=== PATIENT | male | born 1995 | race Caucasian/White ===

== ENCOUNTER 2018-11-16 10:57 | Emergency (ER) | payer MEDICAID, SELFPAY ==
--- NOTE | 2018-11-16 11:09 | W.ED.GENAD ---
Discharge Plan Disposition Patient Disposition: HOME Condition: Fair Discharge Details Chief Complaint: DentalOral Clinical Impression: Dental infection Primary Care Provider: None,None ED Provider: Gloria Trent Home Meds and New Rx's Prescriptions: New clindamycin HCl 150 mg capsule 450 mg PO TID Qty: 63 RF: 0 Discharge Instructions Instructions: Clindamycin (By mouth), Dental Abscess (ED) Additional Instructions: Encourage hydration. Continue with Tylenol and ibuprofen as needed for discomfort. Take antibiotics as prescribed, even if symptoms improve please take the entire course. You are given your first dose of clindamycin here, you will take the next dose tonight. Please keep upcoming appointment with a dentist even if symptoms improve. If you develop fevers, increased pain, increased swelling or other new/worsening symptoms please seek care urgently once again Medical Decision Making Patient is a 23 year old male, accompanied by his , with c/c of left upper dental pain. Pain initially began one week ago, he was seen in [place] and was placed on Penicillin. Finished Penicillin 2 days ago. Reports that it was feeling much improved until he ate last night. Noted increased pain and swelling which has continued ot increase today. He has swelling of the left cheek, no fluctuance, warmth or erythema noted. He has pain along the buccal side of the left upper dentition, broken #14 tooth appears to be source of pain. No pain along lingual side. No visible or palpable area of fluctuance to suggest drainable abscess. Patient has appointment with dentist Saturday. Will place on Clindamycin. he was given strict return precautions. Will continue with Tylenol and/or Ibuprofen for pain. He has not taken any today, will dose here. Will give first dose of Clindamycin as well. All of his questions and concerns were addressed, he is in agreement iwth this plan. HPI General Mode of arrival: ambulatory. Date/Time Provider Initiated Documentation: 11/16/18 11:08. Limitations to Documentation: no limitations. Information obtained by: patient, family and RN notes reviewed. History of Present Illness 23 year old M presents to the emergency department with the chief complaint of left upper dental pain, described as moderate, with intensity rated at 8. Quality is described as aching, and is localized to the mouth. Patient reports no radiation. Patient started experiencing this day(s) (1) and it has been constant. No relieving factors improve symptom(s), Eating worsens symptoms . Patient notes denies chest pain, cough, fever/chills, headaches, loss of appetite, nausea/vomiting, rash and shortness of breath. Patient did receive the following treatments prior to arrival, other (was on Penicillin last week) Related Data Home Medications Medication Instructions Recorded Confirmed clindamycin HCl 450 mg PO TID #63 cap 11/16/18 Previous Rx's Medication Instructions Recorded clindamycin HCl 450 mg PO TID #63 cap 11/16/18 Allergies Allergy/AdvReac Type Severity Reaction Status Date / Time No Known Allergies Allergy Unverified 04/22/16 09:17 Review of Systems Constitutional Reports as per HPI, Denies chills, Denies fatigue, Denies fever(s), Denies headache(s) and Denies poor appetite Eyes Denies change in vision and Denies irritation ENT Reports as per HPI, Reports dental pain, Denies dysphagia, Denies dizziness, Denies dry mouth, Denies ear discharge, Denies otalgia, Reports facial pain, Denies headache(s), Denies hoarseness, Denies lip swelling, Denies nasal congestion, Denies odynophagia and Denies sore throat Cardiovascular Reports as per HPI and Denies chest pain Respiratory Reports as per HPI and Denies cough Gastrointestinal Reports as per HPI, Denies dysphagia, Denies nausea, Denies odynophagia and Denies vomiting Integumentary/Breasts Reports as per HPI, Denies erythema, Denies rash and Denies skin pain Neurologic Reports as per HPI, Denies dizziness and Denies headache(s) Endocrine Denies fatigue Allergic/Immunologic Denies lip swelling [facility] Social History Smoking/Tobacco Use Status: Current, status unknown Tobacco Type: cigarettes Alcohol Intake: current Alcohol Intake frequency: 3 or more drinks per day Drug use: Never Substance use type: does not use Do you feel safe at home: Yes Do you feel safe in your relationship?: Yes Exam Const General: cooperative, healthy appearing, comfortable, no acute distress, well developed and well groomed Nutritional Appearance: average body habitus and well nourished Orientation: alert and awake [facility] Head: normal to inspection, normocephalic and atraumatic Ears: hearing grossly normal bilaterally, external ears normal and TM's normal bilaterally General nose exam: external nose normal and nares normal Face and sinus: no fluctuance and other (swelling of left cheek over area of dental pain) Mouth: oral mucosae normal, lip normal, tongue normal, no muffled voice, no trismus and No restricted motion Teeth and gingiva: abnormal dentition (broken #14 tooth, pain along buccal side) Throat: posterior oropharynx normal, tonsils normal and uvula midline Eyes General: appearance normal, both eyes and all related structures Neck Neck: normal visual inspection, full ROM, no lymphadenopathy, supple and no anterior neck swelling Resp Effort & Inspection: normal respiratory effort, able to speak in complete sentences and no respiratory distress Auscultation: clear to auscultation bilaterally, no rales, no rhonchi and no wheezes Cardio Rate: regular rate Rhythm: regular rhythm Heart Sounds: S1 normal and S2 normal Skin General skin exam: no rashes or lesions noted Trauma: no lacerations or abrasions Neuro General: alert and awake Cognition: normal cognition Speech: speech normal Gait: normal gait Psych Appearance: grossly normal and well kempt Mental Status: mental status grossly normal Speech and Movement: speech and movement normal
--- NOTE | 2018-11-16 11:11 | NUR.NOTE ---
pt has had a mild cronic infection in his left upper molar this morning when the PT awoke he had 8/10 pain and significant swelling
[2018-11-16 11:12] VITALS: BP 134/71; PULSE 90; RESP 18; TEMP 38.1; O2SAT 96
[2018-11-16 11:25] VITALS: BP 134/71; PULSE 90; RESP 18; TEMP 38.1; O2SAT 96
[2018-11-16] MEDS: Clindamycin 150 MG CAP 450 MG PO (11:25)
[2018-11-16] MEDS: Acetaminophen 500 MG TAB 1000 MG PO (11:25)
[2018-11-16] MEDS: Ibuprofen 600 MG TAB PO (11:25)
--- NOTE | 2018-11-16 11:30 | ED.GENADUL_ITS ---
Discharge Plan Disposition Patient Disposition: HOME Condition: Fair Discharge Details Chief Complaint: DentalOral Clinical Impression: Dental infection Primary Care Provider: None,None ED Provider: Gloria Trent Home Meds and New Rx's Prescriptions: New clindamycin HCl 150 mg capsule 450 mg PO TID Qty: 63 RF: 0 Discharge Instructions Instructions: Clindamycin (By mouth), Dental Abscess (ED) Additional Instructions: Encourage hydration. Continue with Tylenol and ibuprofen as needed for discomfort. Take antibiotics as prescribed, even if symptoms improve please take the entire course. You are given your first dose of clindamycin here, you will take the next dose tonight. Please keep upcoming appointment with a dentist even if symptoms improve. If you develop fevers, increased pain, increased swelling or other new/worsening symptoms please seek care urgently once again Medical Decision Making Patient is a 23 year old male, accompanied by his , with c/c of left upper dental pain. Pain initially began one week ago, he was seen in [place] where he resides and was placed on Penicillin. Finished Penicillin 2 days ago. Reports that it was feeling much improved until he ate last night. Noted increased pain and swelling which has continued ot increase today. He has swelling of the left cheek, no fluctuance, warmth or erythema noted. He has pain along the buccal side of the left upper dentition, broken #14 tooth appears to be source of pain. No pain along lingual side. No visible or palpable area of fluctuance to suggest drainable abscess. Patient has appointment with dentist Saturday. Will place on Clindamycin. he was given strict return precautions. Will continue with Tylenol and/or Ibuprofen for pain. He has not taken any today, will dose here. Will give first dose of Clindamycin as well. All of his questions and concerns were addressed, he is in agreement iwth this plan. HPI General Mode of arrival: ambulatory . Date/Time Provider Initiated Documentation: 11/16/18 11:08 . Limitations to Documentation: no limitations . Information obtained by: patient, family and RN notes reviewed . History of Present Illness 23 year old M presents to the emergency department with the chief complaint of left upper dental pain, described as moderate, with intensity rated at 8. Quality is described as aching, and is localized to the mouth. Patient reports no radiation. Patient started experiencing this day(s) (1) and it has been constant. No relieving factors improve symptom(s), Eating worsens symptoms . Patient notes denies chest pain, cough, fever/chills, headaches, loss of appetite, nausea/vomiting, rash and shortness of breath. Patient did receive the following treatments prior to arrival, other (was on Penicillin last week) Related Data Home Medications Medication Instructions Recorded Confirmed clindamycin HCl 450 mg PO TID #63 cap 11/16/18 Previous Rx's Medication Instructions Recorded clindamycin HCl 450 mg PO TID #63 cap 11/16/18 Allergies Allergy/AdvReac Type Severity Reaction Status Date / Time No Known Allergies Allergy Unverified 04/22/16 09:17 Review of Systems Constitutional Reports as per HPI, Denies chills, Denies fatigue, Denies fever(s), Denies headache(s) and Denies poor appetite Eyes Denies change in vision and Denies irritation ENT Reports as per HPI, Reports dental pain, Denies dysphagia, Denies dizziness, Denies dry mouth, Denies ear discharge, Denies otalgia, Reports facial pain, Denies headache(s), Denies hoarseness, Denies lip swelling, Denies nasal congestion, Denies odynophagia and Denies sore throat Cardiovascular Reports as per HPI and Denies chest pain Respiratory Reports as per HPI and Denies cough Gastrointestinal Reports as per HPI, Denies dysphagia, Denies nausea, Denies odynophagia and Denies vomiting Integumentary/Breasts Reports as per HPI, Denies erythema, Denies rash and Denies skin pain Neurologic Reports as per HPI, Denies dizziness and Denies headache(s) Endocrine Denies fatigue Allergic/Immunologic Denies lip swelling [facility] Social History Smoking/Tobacco Use Status: Current, status unknown Tobacco Type: cigarettes Alcohol Intake: current Alcohol Intake frequency: 3 or more drinks per day Drug use: Never Substance use type: does not use Do you feel safe at home: Yes Do you feel safe in your relationship?: Yes Exam Const General: cooperative, healthy appearing, comfortable, no acute distress, well developed and well groomed Nutritional Appearance: average body habitus and well nourished Orientation: alert and awake [facility] Head: normal to inspection, normocephalic and atraumatic Ears: hearing grossly normal bilaterally, external ears normal and TM's normal bilaterally General nose exam: external nose normal and nares normal Face and sinus: no fluctuance and other (swelling of left cheek over area of dental pain) Mouth: oral mucosae normal, lip normal, tongue normal, no muffled voice, no trismus and No restricted motion Teeth and gingiva: abnormal dentition (broken #14 tooth, pain along buccal side) Throat: posterior oropharynx normal, tonsils normal and uvula midline Eyes General: appearance normal, both eyes and all related structures Neck Neck: normal visual inspection, full ROM, no lymphadenopathy, supple and no anterior neck swelling Resp Effort & Inspection: normal respiratory effort, able to speak in complete sentences and no respiratory distress Auscultation: clear to auscultation bilaterally, no rales, no rhonchi and no wheezes Cardio Rate: regular rate Rhythm: regular rhythm Heart Sounds: S1 normal and S2 normal Skin General skin exam: no rashes or lesions noted Trauma: no lacerations or abrasions Neuro General: alert and awake Cognition: normal cognition Speech: speech normal Gait: normal gait Psych Appearance: grossly normal and well kempt Mental Status: mental status grossly normal Speech and Movement: speech and movement normal
== END 2018-11-16 11:30 | disposition home or self-care (01) ==
LOC: ER 11:26
PROVIDERS: Emergency Provider Physician Assistant
DX: R22.0 Localized swelling, mass and lump, head (principal); K04.7 Periapical abscess without sinus
CPT/HCPCS: 99283